=== PATIENT | male | born 1940 | race Two or more races ===

== ENCOUNTER 2016-11-12 19:29 | Emergency (ER) | payer OTHER ==
[2016-11-12 19:46] VITALS: RESP 18; O2SAT 95
--- NOTE | 2016-11-12 19:53 | EDPHY ---
H & P Stated Complaint: painful itchy rash on RLE, R buttock and L ankle x 1 week. Time Seen by Provider: 11/12/16 20:04 HPI/ROS: CHIEF COMPLAINT: Rash HISTORY OF PRESENT ILLNESS: This patient is a diabetic 76-year-old male who presents to the Emergency Department complaining of an acute exacerbation of a chronic pruritic rash he has had for the past nine months. He has had small localized macular lesions over that time and has been evaluated by a metallurgy teacher repeatedly without reported underlying explanation. He used cortisone cream initially which would calm the pruritic sensation but has not used this recently. Over the past four days, the rash on his right lower extremity has increased in size and is now painful. He reports a mild headache. Denies fever, abdominal pain, dyspnea, or additional complaints. He has not taken any medications today in attempt to treat the rash. He has an appointment tomorrow with his metallurgy teacher for follow-up. REVIEW OF SYSTEMS: A ten point review of systems was performed and is negative with the exception of the items mentioned in the HPI. Source: Patient, Family - Personal History Current Tetanus Diphtheria and Acellular Pertussis (TDAP): Yes - Medical/Surgical History Hx Asthma: No Hx Chronic Respiratory Disease: No Hx Diabetes: Yes Hx Cardiac Disease: No Hx Renal Disease: No Hx Cirrhosis: No Hx Alcoholism: No Hx HIV/AIDS: No Hx Splenectomy or Spleen Trauma: No Other PMH: HTN, gout, DM II - Social History Smoking Status: Never smoked Additional Social History: Daughters at bedside. - Physical Exam Exam: General Appearance: Alert. Vital signs reviewed. Blood pressure 145/83. Eyes: Pupils equal and round, no conjunctival injection, no discharge. Anicteric. ENT, Mouth: Mucous membranes are moist, no oropharyngeal erythema or edema. No sores in mouth. Neck: No lymphadenopathy, supple. Respiratory: Lungs are clear to auscultation; no wheezes, rales, or rhonchi. Cardiovascular: Regular rate and rhythm; no murmur, rub, or gallop. Gastrointestinal: Abdomen is soft and nontender, no masses or organomegaly, bowel sounds normal. Skin: Generalized macular erythematous rash, most severe over the right lower extremity with 2x2cm area of weeping vesicles just superior to the right lateral malleolus. Areas of erythema that are nonblanching on leg. No bullae, no skin sloughing. Back: Nontender to palpation over the thoracolumbar spine. No CVAT. Extremities: No lower extremity edema, no calf tenderness or swelling. Neurological: Alert and oriented. Moving all four extremities easily and equally. Psychiatric: Normal affect. Constitutional: Initial Vital Signs Temperature (C) 36.3 C 11/12/16 19:43 Heart Rate 93 11/12/16 19:43 Respiratory Rate 18 11/12/16 19:43 Blood Pressure 145/83 H 11/12/16 19:43 O2 Sat (%) 95 11/12/16 19:43 O2 Delivery Mode Room Air Allergies/Adverse Reactions: No Known Allergies Allergy (Unverified 11/12/16 19:42) Home Medications: Medication Instructions Recorded Indocin 05/07/09 LISINOPRIL 02/16/11 Metformin HCl 02/16/11 Medical Decision Making ED Course/Re-evaluation: This diabetic 76-year-old male presents with a pruritic generalized macular rash that has been previously evaluated by a metallurgy teacher and treated with cortisone cream 2-3 months prior to arrival. He presents today with an acute exacerbation of this rash, most severe to the right lower extremity where he describes burning pain over a 2x2cm area of weeping vesicles. Apart from skin findings, there are no abnormalities on exam. I am most suspicious of vasculitis , which I discussed with the patient. He does have an appointment tomorrow with a metallurgy teacher for further evaluation. 25mg PO Benadryl administered. I am recommending that he use the steroid cream that he has at home tonight. Differential Diagnosis: Differential diagnosis is broad and includes but is not limited to vasculitis, contact dermatitis, urticaria, purpura, Chan Jameel, TEN. - Data Points Medications Given: Discontinued Medications Diphenhydramine HCl (Benadryl) 25 mg PO EDNOW ONE Stop: 11/12/16 20:20 Last Admin: 11/12/16 20:22 Dose: 25 mg Departure - Departure Disposition: Home, Routine, Self-Care Clinical Impression: Vasculitis Condition: Good Instructions: Acute Rash (ED), Purpura (ED) Additional Instructions: 1. Keep your follow-up appointment tomorrow with your metallurgy teacher for further evaluation. 2. Take 25mg Benadryl every 4-6 hours as needed for itching. 3. Return to the Emergency Department if you experience difficulty breathing, throat or facial swelling, fever, uncontrollable pain, or for other serious concerns. Referrals: Flavia Malave DO [Primary Care Provider] - As per Instructions Report Scribed for: Lluvia Corbin Report Scribed by: Bren Flores Date of Report: 11/12/16 Time of Report: 20:05 Physician Review and Approval Statement: 11/12/16 19:53 Portions of this note were transcribed by the director global medical affairs. I, Dr. Lluvia Corbin, personally performed the history, physical exam, and medical decision- making; and confirmed the accuracy of the information in the transcribed note.
[2016-11-12] MEDS ORDERED: diphenhydrAMINE 25 MG CAP PO ONE (20:19)
[2016-11-12 20:50] VITALS: BP 132/83; PULSE 85; TEMP 97.7
== END 2016-11-12 20:51 | disposition home or self-care (01) ==
LOC: CED 19:29
DX: I77.6 Arteritis, unspecified (principal); I10 Essential (primary) hypertension; E11.9 Type 2 diabetes mellitus without complications; Z79.84 Long term (current) use of oral hypoglycemic drugs

== ENCOUNTER → 2017-01-23 | Outpatient (CLI) | payer OTHER | LOC: CIMAGING 10:05 | PROVIDERS: ATTEND Specialist | DX: L29.9 Pruritus, unspecified (principal) | CPT/HCPCS: 71020-PO ==